=== PATIENT | female | born 1980 | race African-American/Black ===

== ENCOUNTER 2018-07-04 16:03 | Emergency (ER) | payer OTHER ==
[~2018-07-04] VITALS: Ht 162.6 cm; Wt 88.5 kg
[2018-07-04 17:52] VITALS: BP 133/73
--- NOTE | 2018-07-06 13:22 | EKG ---
[place] [address] [facility] [place] [address] ELECTROCARDIOGRAM REPORT Name: MARILUZ DUMONT [id number] ������������������ Admission: 07/04/18 ������������������ Attend Phys: Discharge: 07/04/18 ������������������ Date of : 82 Report #: [id number] ����������������������������������������������������������������� [id number] THIS REPORT FOR: //name// [facility] ED Test Date: 2018-07-04 Test Time: 16:51:54 Pat Name: MARILUZ DUMONT Department: Room: Gender: F [employer] Operator: JOSETTE : 1980 Requested By: Tomer Carpenter Order Number: [id number] MD: Shane Gracia Measurements Intervals [place] Rate: 65 P: 70 CA: 162 QRS: 53 QRSD: 83 T: 37 QT: 386 QTc: 402 Interpretive Statements Sinus rhythm Poor R wave progression No previous ECG available for comparison Electronically Signed On 07-06-2018 13:22:13 CDT by Shane Gracia [email or web address] ��������������������������������������������� <ELECTRONICALLY SIGNED> ���������������������������������������� By: Shane Gracia MD, [facility] ��������������������������������������������� 07/06/18 1322 1651 1651 Shane Gracia MD, FACC /EPI
== END 2018-07-04 17:54 | disposition home or self-care (01) ==
LOC: ER 16:03
DX: F41.0 Panic disorder [episodic paroxysmal anxiety] (principal); F32.9 Major depressive disorder, single episode, unspecified; I10 Essential (primary) hypertension